=== PATIENT | male | born 1955 | race Caucasian/White ===

== ENCOUNTER 2016-08-22 17:29 | Emergency (ER) | payer OTHER ==
[2016-08-22 17:35] VITALS: BP 152/91; TEMP 97.3; BMI 39.3
[2016-08-22] MEDS ORDERED: NITROSTAT SL PRN (17:38)
[2016-08-22] MEDS ORDERED: SODIUM CHLORIDE 1,000 ML IV STA (17:38)
[2016-08-22 17:44] LABS: BASOPHILS % (AUTO) 0.4 % (0.0-3.0); EOSINOPHILS # (AUTO) 0.4 K/ul (0.0-0.7); EOSINOPHILS % (AUTO) 3.4 % (0.0-7.0); HEMATOCRIT 50.4 % (42.0-52.0); HEMOGLOBIN 15.9 g/dl (14.0-18.0); IMMATURE GRANULOCYTE % (AUTO) 0.2 % (0.0-5.0); LYMPHOCYTES # (AUTO) 3.1 K/uL (0.60-3.4); MEAN CORPUSCULAR HEMOGLOBIN 26.5 pg (27.0-31.0); MEAN CORPUSCULAR HGB CONC 31.5 (31.8-35.4); MONOCYTES # (AUTO) 0.7 K/uL (0.4-2.0); MONOCYTES % (AUTO) 6.4 (0-10); NEUTROPHILS # (AUTO) 6.1 K/ul (2.0-6.9); NEUTROPHILS % (AUTO) 59.6; PLATELET COUNT 164 10^3/uL (140-440); WHITE BLOOD COUNT 10.29 K/ul (4.2-10.2)
--- NOTE | 2016-08-22 17:44 | ED.PDOC ---
General ED Provider: Dr. BRITNI HENRY JR Chief Complaint: Chest Pain Stated Complaint: chest pain since friday intermittent--no pain yesterday-- became worse at 1400 today with pain to midchest and pain between shoulder blades--took 4 baby aspirin--pain cont --had VT in past with similar pain[End] 97.3 71 20 96 152/91 03/20 Time Seen by Physician: 17:43 Mode of Arrival: Wheelchair Information Source: Patient Exam Limitations: No limitations Primary Care Provider: PREM NELSON Nursing and Triage Documentation Reviewed and Agree: No Review of Systems - Review Of Systems Constitutional: Reports: No symptoms Eyes: Reports: No symptoms Ears, Nose, Mouth, Throat: Reports: No symptoms Respiratory: Reports: No symptoms Cardiac: Reports: Chest pain GI: Reports: No symptoms : Reports: No symptoms Musculoskeletal: Reports: No symptoms Skin: Reports: No symptoms Neurological: Reports: No symptoms Endocrine: Reports: No symptoms Hematologic/Lymphatic: Reports: No symptoms All Other Systems: Other Past Medical History - Past Medical History Previously Healthy: Yes Endocrine: Reports: None Cardiovascular: Reports: CAD, [place] Respiratory: Reports: None Hematological: Reports: None Gastrointestinal: Reports: None Genitourinary: Reports: None Neuro/Psych: Reports: None Musculoskeletal: Reports: Arthritis Cancer: Reports: None - Surgical History General Surgical History: Reports: Orthopedic (KNEE REPLACEMENT (RIGHT)), Other (PARTIAL COLON REMOVAL IN 1997) - Family History Family History: Reports: Unknown - Social History Smoking Status: Former smoker Hx Substance Use: No Alcohol Screening: Occasionally Physical Exam - Physical Exam Appearance: Well-appearing, Obese Pain Distress: Moderate Eyes: RONNIE, EOMI, Conjunctiva clear ENT: Ears normal, Nose normal, Oropharynx normal Neck: Supple Respiratory: Airway patent, Breath sounds clear, Breath sounds equal, Respirations nonlabored Cardiovascular: RRR, Pulses normal, No rub, No murmur GI/: Soft, Nontender, No masses, Bowel sounds normal, No Organomegaly Musculoskeletal: Normal strength, ROM intact, No edema, No calf tenderness Skin: Warm, Dry, Normal color Neurological: Sensation intact, Motor intact, Reflexes intact, Cranial nerves intact, Alert, Oriented Psychiatric: Affect appropriate, Mood appropriate Interpretation - Radiology Interpretation Radiology Interpretation By: ED Physician Exam Interpreted: CXR - EKG Interpretation Time of EKG #1: 17:43 Rate: Normal Rhythm: Sinus ST Segment: Other (post and left lat FB) Interpretation: 01/05/16 EKG Comparison: No significant changes Re-Evaluation - Re-Evaluation Time of Re-Evaluation: 20:34 (patient is recommended to stay for rule out- patietn refuses admission- DR NELSON...Dr Loya cold reduction roller agrees to allow follow up in morning noting patietn offered admission and refused(not requiring AMA )) Status: Improved Critical Care Note - Critical Care Note Total Time (mins): 20 Course - Course Hematology/Chemistry: 08/22/16 17:38 08/22/16 17:30 Orders, Labs, Meds: Lab Review 08/22/16 08/22/16 17:30 17:38 WBC 10.29 H RBC 6.00 Hgb 15.9 Hct 50.4 MCV 84.0 MCH 26.5 L MCHC 31.5 L RDW Coeff of Vianey 15.9 H Plt Count 164 Immature Gran % (Auto) 0.2 Neut % (Auto) 59.6 Lymph % (Auto) 30.0 [place] % (Auto) 6.4 Eos % (Auto) 3.4 Baso % (Auto) 0.4 Immature Gran # (Auto) 0.0 Neut # 6.1 Lymph # 3.1 [place] # 0.7 Eos # 0.4 Baso # 0.0 D-Dimer 1144.14 H Puncture Site Rrad O2 Saturation 97.0 ABG pH 7.473 H ABG pCO2 35.8 ABG pO2 88.0 ABG HCO3 26.3 H ABG Total CO2 27 ABG Base Excess 3 H Norberto Test + FiO2 % 21.0 Sodium 141 Potassium 3.8 Chloride 105 Carbon Dioxide 24 Anion Gap 15.8 BUN 15 Creatinine 1.05 Estimated GFR (MDRD) 73.00 BUN/Creatinine Ratio 14.28 Glucose 163 H Calcium 8.2 Total Bilirubin 0.34 AST 27 ALT 31 Alkaline Phosphatase 114 Total Creatine Kinase 356 CK-MB (CK-2) 3.8 H CK-MB (CK-2) % 1.65789 Troponin I 0.0370 B-Natriuretic Peptide 51 Total Protein 7.4 Albumin 3.9 Globulin 3.5 Albumin/Globulin Ratio 1.11 Orders Category Date Time Status ABG DRAW REQUEST Stat CARDIO 08/22/16 17:39 Completed EKG-(ED ONLY) Stat CARDIO 08/22/16 17:38 Completed NPO REMINDER: IMAGING ONCE CARE 08/22/16 18:32 Active ED PRODUCT ASSURANCE ENGINEER APPLIED .ONCE EMERGENCY 08/22/16 17:38 Active ED IV/MEDIPORT/POWERPORT .ONCE EMERGENCY 08/22/16 17:38 Active ABG Stat LAB 08/22/16 17:30 Completed B-TYPE NATRIURETIC PEPTIDE Stat LAB 08/22/16 17:30 Completed CBC W/ AUTO DIFF Stat LAB 08/22/16 17:38 Completed COMPREHENSIVE METABOLIC PANEL Stat LAB 08/22/16 17:30 Completed CREATINE KINASE Stat LAB 08/22/16 17:30 Completed D-DIMER Stat LAB 08/22/16 17:30 Completed TROPONIN I Stat LAB 08/22/16 17:30 Completed 0.9 % Sodium Chloride [Saline Flush] MEDS 08/22/16 17:38 Ordered 1 syr IVF PRN PRN Nitroglycerin [Nitrostat] MEDS 08/22/16 17:38 Ordered 0.4 mg SL Q5MIN X 3 DOSES PRN Sodium Chloride 0.9% [Sodium Chloride] 1,000 ml MEDS 08/22/16 17:38 Active IV 100 mls/hr CHEST, 1V AP ONLY Stat RADS 08/22/16 17:[address] CHEST PE PROTOCOL Stat RADS 08/22/16 18:32 Completed Medications Generic Name Dose Route Start Last Admin Trade Name Freq PRN Reason Stop Dose Admin Sodium Chloride 1,000 mls @ 100 mls/hr 08/22/16 17:38 08/22/16 17:52 Sodium Chloride IV 08/23/16 03:37 100 mls/hr .Q10H STA Administration Nitroglycerin 0.4 mg 08/22/16 17:38 08/22/16 17:59 Nitrostat SL 0.4 mg Q5MIN X 3 DOSES PRN Administration Chest Pain Sodium Chloride 1 syr 08/22/16 17:38 08/22/16 17:52 Saline Flush IVF 1 syr PRN PRN Administration To flush IV Vital Signs: Temp Pulse Resp BP Pulse Ox 08/22/16 17:29 97.3 F L 71 20 152/91 H 96 GENTRY Risk Score GENTRY Risk Score: Risk Score Odds of by 30D 0 0.1 (0.1-0.2) 1 0.3 (0.2-0.3) 2 0.4 (0.3-0.5) 3 0.7 (0.6-0.9) 4 1.2 (1.0-1.5) 5 2.2 (1.9-2.6) 6 3.0 (2.5-3.6) 7 4.8 (3.8-6.1) Departure - Departure Time of Disposition: 20:32 Disposition: HOME SELF-CARE Discharge Problem: Chest pain Instructions: Angina (ED) Condition: Good Pt referred to PMD for follow-up: Yes Additional Instructions: follow up with Dr Nelson in the office tomorrow you have been offered admission and have refused to stay we prefer you stay and be evaluated tonight note that chest pain may indicate an ongoing heart attach you may not survive a heart attack and can be cared for in the hospital- not at home Allergies/Adverse Reactions: Allergies Penicillins Adverse Reaction (Verified 08/22/16 17:41) Home Medications: Ambulatory Orders Aspirin [Aspirin EC] 325 mg PO DAILY 02/16/13 Atorvastatin Calcium [Lipitor] 10 mg PO BEDTIME 02/16/13 Carvedilol [Coreg] 12.5 mg PO DAILY 02/16/13 Diclofenac Sodium [Voltaren-Xr] 75 mg PO DAILY 02/16/13 Losartan Potassium [Cozaar] 50 mg PO DAILY 02/16/13 Nitroglycerin [Nitrostat] 0.4 mg SL Q5MIN PRN 02/16/13 Pregabalin [Lyrica] 75 mg PO BID 02/16/13 Metformin Ex Release HCl [Glucophage Xr 500Mg] 500 mg PO DAILYWM 08/22/16 Testosterone Cypionate [Testone Cik] 200 mg IM DIRECTED 08/22/16
[2016-08-22 17:57] LABS: ABG PH 7.473 (7.35-7.45)
[2016-08-22] MEDS ORDERED: NITROSTAT SL ONE (17:57)
[2016-08-22 17:58] LABS: ABG BASE EXCESS 3 (-2.0-2.0); ABG HCO3 26.3 (22.0-26.0); ABG PCO2 35.8 mmHg (35-45); ABG TCO2 27 (22.0-28.0)
--- NOTE | 2016-08-22 18:05 | DI ---
EXAM: Single view chest. HISTORY: Chest pain. COMPARISON: 01/05/2016 FINDINGS: Examination is suboptimal secondary to extreme apical lordotic technique. The heart appear s mildly enlarged, however, may be accentuated by the radiographic technique. The pulmonary vascula rity is within normal limits. No definite focal airspace opacity or pleural effusion. Mild osteoar thritis of the bilateral acromioclavicular joints is present. IMPRESSION: No acute chest findings on this limited exam.
[2016-08-22 18:16] LABS: ALBUMIN 3.9 g/dL (3.4-5.0); ALBUMIN/GLOBULIN RATIO 1.11; ANION GAP 15.8; BILIRUBIN,TOTAL 0.34 mg/dL (0.00-1.20); BUN/CREATININE RATIO 14.28; CALCIUM 8.2 mg/dL (8.2-10.2); CREATININE 1.05 mg/dL (0.60-1.10); POTASSIUM 3.8 mmol/L (3.5-5.1); TOTAL PROTEIN 7.4 g/dL (6.4-8.2); TROPONIN I 0.037 ng/ml (0.0000-0.4000)
[2016-08-22 18:21] LABS: CREATINE KINASE MB 3.8 ng/ml (0.0-3.6)
--- NOTE | 2016-08-22 20:15 | CT ---
EXAM: CTA chest with contrast HISTORY: Chest pain and positive D-dimer. TECHNIQUE: Multi-slice transaxial helical PE protocol. Multiplanar MIP and 3D volume rendered imag es are provided. COMPARISON: Chest radiograph from same day. FINDINGS: There are no main, lobar, or segmental pulmonary arterial filling defects.The heart appears mildly e nlarged. A mildly enlarged subcarinal lymph node is present which measures up to 1.1 cm in diameter . Otherwise no evidence of mediastinal adenopathy is seen. The thyroid appears unremarkable. There is no axillary adenopathy. The gallbladder has been remove d. Multiple sub centimeter hypodensities are present within the left kidney which are too small to actually characterize. Otherwise the partially imaged upper abdomen appears unremarkable. The ther e is mild multilevel degenerative changes of the thoracic spine with bridging anterior osteophytosis . Bibasilar subsegmental atelectasis is present. Emphysematous changes of the left lung base are pres ent. Small clustered lymph nodes in the left lung base are present measuring up to 4 mm in size. Ot herwise no focal airspace opacity or pleural effusion is seen. There is mild pleural thickening in the right lung base. IMPRESSION: 1. Negative exam for PE. 2. No acute cardiopulmonary findings. 3. Mild cardiomegaly. 4. Nonspecific mildly enlarged subcarinal lymph node measuring up to 1.1 cm. 5. Small pulmonary nodules in the left lung base measuring up to 4 mm. Recommend follow-up per Fle ischner criteria. 6. Cholecystectomy. 7. Left renal hypodensities too small to accurately characterize. Comment: Fleischner Society Recommendations on Incidental Pulmonary Nodule Follow-up: -measurements are for average length and width, non solid (ground glass) or partly solid nodules may require longer follow-up. Low risk patient: (minimal or absent known risk factors) <=4mm- no follow up needed >4-6mm- 12 mo, >6-8mm- initial at 6-12 mo, then 18-24 mo if no change >8mm- follow up CT at 3, 9, 24 mo, dynamic thin slice contrast CT, PET and/or biopsy High risk patient: (history of smoking or other risk factors) <=4mm- follow up CT at 12 mo >4-6mm- initial CT at 6-12 mo then 18-24 mo if no change >6-8mm- initial CT at 3-6, 9-12 then 18-24 mo >8mm- same as low risk ]
== END 2016-08-22 20:45 | disposition home or self-care (01) ==
LOC: ED 17:29
DX: R07.9 Chest pain, unspecified (principal); I20.9 Angina pectoris, unspecified; I25.2 Old myocardial infarction; I25.10 Atherosclerotic heart disease of native coronary artery without angina pectoris; Z79.899 Other long term (current) drug therapy
CPT/HCPCS: 36415; 80053; 82550; 82553; 82803; 83880; 84484; 85025; 85379; 93005; 93010; 96360; 99284

== ENCOUNTER 2016-08-29 12:04 | Outpatient (CLI) | payer OTHER ==
[2016-08-29 12:28] LABS: BASOPHILS # (AUTO) 0.1 K/uL (0-0.2); BASOPHILS % (AUTO) 0.6 % (0.0-3.0); EOSINOPHILS # (AUTO) 0.3 K/ul (0.0-0.7); EOSINOPHILS % (AUTO) 2.9 % (0.0-7.0); HEMATOCRIT 50.9 % (42.0-52.0); HEMOGLOBIN 16.2 g/dl (14.0-18.0); IMMATURE GRANULOCYTE % (AUTO) 0.1 % (0.0-5.0); LYMPHOCYTES # (AUTO) 2.6 K/uL (0.60-3.4); LYMPHOCYTES % (AUTO) 29.8 (10.0-50.0); MEAN CORPUSCULAR HEMOGLOBIN 26.8 pg (27.0-31.0); MEAN CORPUSCULAR HGB CONC 31.8 (31.8-35.4); MEAN CORPUSCULAR VOLUME 84.3 fl (80.0-94.0); MONOCYTES # (AUTO) 0.5 K/uL (0.4-2.0); MONOCYTES % (AUTO) 5.8 (0-10); NEUTROPHILS # (AUTO) 5.4 K/ul (2.0-6.9); NEUTROPHILS % (AUTO) 60.8; PLATELET COUNT 169 10^3/uL (140-440); RED BLOOD COUNT 6.04 10^6/ul (4.70-6.10); WHITE BLOOD COUNT 8.85 K/ul (4.2-10.2)
== END 2016-08-29 12:05 | disposition home or self-care (01) ==
LOC: LAB 12:04
PROVIDERS: ATTEND Internal Medicine
DX: E29.1 Testicular hypofunction (principal); D75.1 Secondary polycythemia
CPT/HCPCS: 36415; 85025; 99195

== ENCOUNTER 2016-09-26 12:33 | Outpatient (CLI) ==
[2016-09-26 12:54] LABS: BASOPHILS # (AUTO) 0.1 K/uL (0-0.2); BASOPHILS % (AUTO) 0.7 % (0.0-3.0); EOSINOPHILS # (AUTO) 0.3 K/ul (0.0-0.7); EOSINOPHILS % (AUTO) 4.1 % (0.0-7.0); HEMATOCRIT 46.2 % (42.0-52.0); HEMOGLOBIN 15.2 g/dl (14.0-18.0); IMMATURE GRANULOCYTE % (AUTO) 0.2 % (0.0-5.0); LYMPHOCYTES # (AUTO) 2.7 K/uL (0.60-3.4); LYMPHOCYTES % (AUTO) 33.1 (10.0-50.0); MEAN CORPUSCULAR HEMOGLOBIN 27.5 pg (27.0-31.0); MEAN CORPUSCULAR HGB CONC 32.9 (31.8-35.4); MEAN CORPUSCULAR VOLUME 83.5 fl (80.0-94.0); MONOCYTES # (AUTO) 0.8 K/uL (0.4-2.0); MONOCYTES % (AUTO) 9.3 (0-10); NEUTROPHILS # (AUTO) 4.2 K/ul (2.0-6.9); NEUTROPHILS % (AUTO) 52.6; PLATELET COUNT 176 10^3/uL (140-440); RED BLOOD COUNT 5.53 10^6/ul (4.70-6.10); WHITE BLOOD COUNT 8.07 K/ul (4.2-10.2)
== END 2016-09-26 12:34 | disposition home or self-care (01) ==
LOC: LAB 12:33
PROVIDERS: ATTEND Internal Medicine
DX: E29.1 Testicular hypofunction (principal); D75.1 Secondary polycythemia
CPT/HCPCS: 36415; 85025

== ENCOUNTER 2016-10-24 11:11 | Outpatient (CLI) | payer OTHER ==
[2016-10-24 11:23] LABS: BASOPHILS % (AUTO) 0.5 % (0.0-3.0); EOSINOPHILS # (AUTO) 0.3 K/ul (0.0-0.7); EOSINOPHILS % (AUTO) 3.2 % (0.0-7.0); HEMATOCRIT 47.4 % (42.0-52.0); HEMOGLOBIN 15.4 g/dl (14.0-18.0); IMMATURE GRANULOCYTE % (AUTO) 0.2 % (0.0-5.0); LYMPHOCYTES # (AUTO) 2.5 K/uL (0.60-3.4); LYMPHOCYTES % (AUTO) 31.5 (10.0-50.0); MEAN CORPUSCULAR HEMOGLOBIN 26.9 pg (27.0-31.0); MEAN CORPUSCULAR HGB CONC 32.5 (31.8-35.4); MEAN CORPUSCULAR VOLUME 82.7 fl (80.0-94.0); MONOCYTES # (AUTO) 0.7 K/uL (0.4-2.0); MONOCYTES % (AUTO) 8.7 (0-10); NEUTROPHILS # (AUTO) 4.5 K/ul (2.0-6.9); NEUTROPHILS % (AUTO) 55.9; PLATELET COUNT 161 10^3/uL (140-440); RED BLOOD COUNT 5.73 10^6/ul (4.70-6.10); WHITE BLOOD COUNT 8.01 K/ul (4.2-10.2)
== END 2016-10-24 11:12 | disposition home or self-care (01) ==
LOC: LAB 11:11
PROVIDERS: ATTEND Internal Medicine
DX: E29.1 Testicular hypofunction (principal); D75.1 Secondary polycythemia
CPT/HCPCS: 36415; 85025

== ENCOUNTER 2016-11-21 11:52 | Outpatient (CLI) ==
[2016-11-21 12:10] LABS: BASOPHILS % (AUTO) 0.5 % (0.0-3.0); EOSINOPHILS # (AUTO) 0.3 K/ul (0.0-0.7); EOSINOPHILS % (AUTO) 3.4 % (0.0-7.0); HEMATOCRIT 45.9 % (42.0-52.0); HEMOGLOBIN 14.9 g/dl (14.0-18.0); IMMATURE GRANULOCYTE % (AUTO) 0.3 % (0.0-5.0); LYMPHOCYTES # (AUTO) 2.3 K/uL (0.60-3.4); LYMPHOCYTES % (AUTO) 28.3 (10.0-50.0); MEAN CORPUSCULAR HEMOGLOBIN 27.1 pg (27.0-31.0); MEAN CORPUSCULAR HGB CONC 32.5 (31.8-35.4); MEAN CORPUSCULAR VOLUME 83.5 fl (80.0-94.0); MONOCYTES # (AUTO) 0.7 K/uL (0.4-2.0); MONOCYTES % (AUTO) 8.5 (0-10); NEUTROPHILS # (AUTO) 4.7 K/ul (2.0-6.9); PLATELET COUNT 161 10^3/uL (140-440); WHITE BLOOD COUNT 7.99 K/ul (4.2-10.2)
== END 2016-11-21 11:53 | disposition home or self-care (01) ==
LOC: LAB 11:52
PROVIDERS: ATTEND Internal Medicine
DX: E29.1 Testicular hypofunction (principal); D75.1 Secondary polycythemia
CPT/HCPCS: 36415; 85025

== ENCOUNTER 2016-12-19 12:28 | Outpatient (CLI) ==
[2016-12-19 12:51] LABS: BASOPHILS # (AUTO) 0.1 K/uL (0-0.2); BASOPHILS % (AUTO) 0.6 % (0.0-3.0); EOSINOPHILS # (AUTO) 0.3 K/ul (0.0-0.7); EOSINOPHILS % (AUTO) 3.6 % (0.0-7.0); HEMATOCRIT 47.8 % (42.0-52.0); HEMOGLOBIN 15.8 g/dl (14.0-18.0); IMMATURE GRANULOCYTE % (AUTO) 0.2 % (0.0-5.0); LYMPHOCYTES # (AUTO) 2.5 K/uL (0.60-3.4); LYMPHOCYTES % (AUTO) 28.9 (10.0-50.0); MEAN CORPUSCULAR HEMOGLOBIN 27.2 pg (27.0-31.0); MEAN CORPUSCULAR HGB CONC 33.1 (31.8-35.4); MEAN CORPUSCULAR VOLUME 82.3 fl (80.0-94.0); MONOCYTES # (AUTO) 0.8 K/uL (0.4-2.0); MONOCYTES % (AUTO) 8.9 (0-10); NEUTROPHILS % (AUTO) 57.8; PLATELET COUNT 169 10^3/uL (140-440); RED BLOOD COUNT 5.81 10^6/ul (4.70-6.10); WHITE BLOOD COUNT 8.66 K/ul (4.2-10.2)
== END 2016-12-19 12:29 | disposition home or self-care (01) ==
LOC: LAB 12:28
PROVIDERS: ATTEND Internal Medicine
DX: D75.1 Secondary polycythemia (principal)
CPT/HCPCS: 36415; 85025

== ENCOUNTER 2017-01-16 11:57 | Outpatient (CLI) | payer OTHER ==
[2017-01-16 12:16] LABS: BASOPHILS % (AUTO) 0.4 % (0.0-3.0); EOSINOPHILS # (AUTO) 0.3 K/ul (0.0-0.7); EOSINOPHILS % (AUTO) 3.7 % (0.0-7.0); HEMATOCRIT 47.2 % (42.0-52.0); HEMOGLOBIN 15.6 g/dl (14.0-18.0); IMMATURE GRANULOCYTE % (AUTO) 0.1 % (0.0-5.0); LYMPHOCYTES # (AUTO) 2.4 K/uL (0.60-3.4); LYMPHOCYTES % (AUTO) 29.6 (10.0-50.0); MEAN CORPUSCULAR HEMOGLOBIN 27.4 pg (27.0-31.0); MEAN CORPUSCULAR HGB CONC 33.1 (31.8-35.4); MONOCYTES # (AUTO) 0.8 K/uL (0.4-2.0); NEUTROPHILS # (AUTO) 4.5 K/ul (2.0-6.9); NEUTROPHILS % (AUTO) 56.2; PLATELET COUNT 157 10^3/uL (140-440); RED BLOOD COUNT 5.69 10^6/ul (4.70-6.10); WHITE BLOOD COUNT 8.07 K/ul (4.2-10.2)
== END 2017-01-16 11:58 | disposition home or self-care (01) ==
LOC: LAB 11:57
PROVIDERS: ATTEND Internal Medicine
DX: D75.1 Secondary polycythemia (principal)
CPT/HCPCS: 36415; 85025

== ENCOUNTER 2017-02-18 12:28 | Outpatient (CLI) ==
[2017-02-18 12:43] LABS: BASOPHILS % (AUTO) 0.2 % (0.0-3.0); EOSINOPHILS # (AUTO) 0.3 K/ul (0.0-0.7); EOSINOPHILS % (AUTO) 2.9 % (0.0-7.0); HEMATOCRIT 47.9 % (42.0-52.0); HEMOGLOBIN 15.9 g/dl (14.0-18.0); IMMATURE GRANULOCYTE % (AUTO) 0.2 % (0.0-5.0); LYMPHOCYTES # (AUTO) 2.1 K/uL (0.60-3.4); LYMPHOCYTES % (AUTO) 24.1 (10.0-50.0); MEAN CORPUSCULAR HEMOGLOBIN 27.7 pg (27.0-31.0); MEAN CORPUSCULAR HGB CONC 33.2 (31.8-35.4); MEAN CORPUSCULAR VOLUME 83.6 fl (80.0-94.0); MONOCYTES # (AUTO) 0.7 K/uL (0.4-2.0); MONOCYTES % (AUTO) 8.5 (0-10); NEUTROPHILS # (AUTO) 5.6 K/ul (2.0-6.9); NEUTROPHILS % (AUTO) 64.1; PLATELET COUNT 164 10^3/uL (140-440); RED BLOOD COUNT 5.73 10^6/ul (4.70-6.10); WHITE BLOOD COUNT 8.74 K/ul (4.2-10.2)
== END 2017-02-18 12:29 | disposition home or self-care (01) ==
LOC: LAB 12:28
PROVIDERS: ATTEND Internal Medicine
DX: D75.1 Secondary polycythemia (principal)
CPT/HCPCS: 36415; 85025

== ENCOUNTER 2017-03-18 11:57 | Outpatient (CLI) ==
[2017-03-18 12:35] LABS: BASOPHILS # (AUTO) 0.1 K/uL (0-0.2); BASOPHILS % (AUTO) 0.6 % (0.0-3.0); EOSINOPHILS # (AUTO) 0.3 K/ul (0.0-0.7); EOSINOPHILS % (AUTO) 3.6 % (0.0-7.0); HEMATOCRIT 47.8 % (42.0-52.0); HEMOGLOBIN 16.2 g/dl (14.0-18.0); IMMATURE GRANULOCYTE % (AUTO) 0.1 % (0.0-5.0); LYMPHOCYTES # (AUTO) 2.3 K/uL (0.60-3.4); MEAN CORPUSCULAR HEMOGLOBIN 28.4 pg (27.0-31.0); MEAN CORPUSCULAR HGB CONC 33.9 (31.8-35.4); MEAN CORPUSCULAR VOLUME 83.9 fl (80.0-94.0); MONOCYTES # (AUTO) 0.7 K/uL (0.4-2.0); MONOCYTES % (AUTO) 9.3 (0-10); NEUTROPHILS # (AUTO) 4.5 K/ul (2.0-6.9); NEUTROPHILS % (AUTO) 57.4; PLATELET COUNT 163 10^3/uL (140-440); WHITE BLOOD COUNT 7.86 K/ul (4.2-10.2)
== END 2017-03-18 11:58 | disposition home or self-care (01) ==
LOC: LAB 11:57
PROVIDERS: ATTEND Internal Medicine
DX: D75.1 Secondary polycythemia (principal)
CPT/HCPCS: 36415; 85025

== ENCOUNTER 2017-04-16 12:25 | Outpatient (CLI) ==
[2017-04-16 12:46] LABS: BASOPHILS % (AUTO) 0.4 % (0.0-3.0); EOSINOPHILS # (AUTO) 0.3 K/ul (0.0-0.7); EOSINOPHILS % (AUTO) 3.9 % (0.0-7.0); HEMATOCRIT 48.8 % (42.0-52.0); HEMOGLOBIN 16.3 g/dl (14.0-18.0); IMMATURE GRANULOCYTE % (AUTO) 0.3 % (0.0-5.0); LYMPHOCYTES # (AUTO) 2.6 K/uL (0.60-3.4); LYMPHOCYTES % (AUTO) 32.9 (10.0-50.0); MEAN CORPUSCULAR HEMOGLOBIN 28.4 pg (27.0-31.0); MEAN CORPUSCULAR HGB CONC 33.4 (31.8-35.4); MONOCYTES # (AUTO) 0.5 K/uL (0.4-2.0); MONOCYTES % (AUTO) 6.5 (0-10); NEUTROPHILS # (AUTO) 4.5 K/ul (2.0-6.9); PLATELET COUNT 141 10^3/uL (140-440); RED BLOOD COUNT 5.74 10^6/ul (4.70-6.10); WHITE BLOOD COUNT 7.96 K/ul (4.2-10.2)
== END 2017-04-16 12:26 | disposition home or self-care (01) ==
LOC: LAB 12:25
PROVIDERS: ATTEND Internal Medicine
DX: D75.1 Secondary polycythemia (principal)
CPT/HCPCS: 36415; 85025

== ENCOUNTER 2017-05-20 12:23 | Outpatient (CLI) | payer OTHER ==
[2017-05-20 12:52] LABS: BASOPHILS # (AUTO) 0.1 K/uL (0-0.2); BASOPHILS % (AUTO) 0.5 % (0.0-3.0); EOSINOPHILS # (AUTO) 0.3 K/ul (0.0-0.7); EOSINOPHILS % (AUTO) 3.4 % (0.0-7.0); HEMATOCRIT 48.9 % (42.0-52.0); HEMOGLOBIN 16.4 g/dl (14.0-18.0); IMMATURE GRANULOCYTE % (AUTO) 0.3 % (0.0-5.0); LYMPHOCYTES # (AUTO) 2.7 K/uL (0.60-3.4); LYMPHOCYTES % (AUTO) 29.2 (10.0-50.0); MEAN CORPUSCULAR HEMOGLOBIN 28.9 pg (27.0-31.0); MEAN CORPUSCULAR HGB CONC 33.5 (31.8-35.4); MEAN CORPUSCULAR VOLUME 86.1 fl (80.0-94.0); MONOCYTES # (AUTO) 0.8 K/uL (0.4-2.0); MONOCYTES % (AUTO) 8.6 (0-10); NEUTROPHILS # (AUTO) 5.4 K/ul (2.0-6.9); PLATELET COUNT 152 10^3/uL (140-440); RED BLOOD COUNT 5.68 10^6/ul (4.70-6.10); WHITE BLOOD COUNT 9.37 K/ul (4.2-10.2)
== END 2017-05-20 12:24 | disposition home or self-care (01) ==
LOC: LAB 12:23
PROVIDERS: ATTEND Internal Medicine
DX: D75.1 Secondary polycythemia (principal)
CPT/HCPCS: 36415; 85025

== ENCOUNTER 2017-07-15 11:28 | Outpatient (CLI) ==
[2017-07-15 11:52] LABS: BASOPHILS # (AUTO) 0.1 K/uL (0-0.2); BASOPHILS % (AUTO) 0.7 % (0.0-3.0); EOSINOPHILS # (AUTO) 0.3 K/ul (0.0-0.7); HEMATOCRIT 47.9 % (42.0-52.0); HEMOGLOBIN 15.6 g/dl (14.0-18.0); IMMATURE GRANULOCYTE % (AUTO) 0.2 % (0.0-5.0); LYMPHOCYTES # (AUTO) 2.5 K/uL (0.60-3.4); LYMPHOCYTES % (AUTO) 29.2 (10.0-50.0); MEAN CORPUSCULAR HEMOGLOBIN 27.8 pg (27.0-31.0); MEAN CORPUSCULAR HGB CONC 32.6 (31.8-35.4); MEAN CORPUSCULAR VOLUME 85.2 fl (80.0-94.0); MONOCYTES # (AUTO) 0.8 K/uL (0.4-2.0); MONOCYTES % (AUTO) 9.2 (0-10); NEUTROPHILS # (AUTO) 4.8 K/ul (2.0-6.9); NEUTROPHILS % (AUTO) 56.7; PLATELET COUNT 190 10^3/uL (140-440); RED BLOOD COUNT 5.62 10^6/ul (4.70-6.10); WHITE BLOOD COUNT 8.45 K/ul (4.2-10.2)
== END 2017-07-15 11:29 | disposition home or self-care (01) ==
LOC: LAB 11:28
PROVIDERS: ATTEND Internal Medicine
DX: E11.9 Type 2 diabetes mellitus without complications (principal); D75.1 Secondary polycythemia; Z79.899 Other long term (current) drug therapy
CPT/HCPCS: 36415; 85025

== ENCOUNTER 2017-08-14 11:30 | Outpatient (CLI) | END 2017-08-14 11:31 | disposition home or self-care (01) | LOC: LAB 11:30 | PROVIDERS: ATTEND Internal Medicine | DX: E11.9 Type 2 diabetes mellitus without complications (principal); D75.1 Secondary polycythemia; Z79.899 Other long term (current) drug therapy | CPT/HCPCS: 36415; 85025 ==

== ENCOUNTER 2017-09-16 11:51 | Outpatient (CLI) | END 2017-09-16 11:52 | disposition home or self-care (01) | LOC: LAB 11:51 | PROVIDERS: ATTEND Internal Medicine | DX: E11.9 Type 2 diabetes mellitus without complications (principal); Z79.899 Other long term (current) drug therapy | CPT/HCPCS: 36415; 85025 ==

== ENCOUNTER 2017-10-28 12:04 | Outpatient (CLI) | payer OTHER | END 2017-10-28 12:05 | disposition home or self-care (01) | LOC: LAB 12:04 | PROVIDERS: ATTEND Internal Medicine | DX: E11.9 Type 2 diabetes mellitus without complications (principal); Z79.899 Other long term (current) drug therapy | CPT/HCPCS: 36415; 85025 ==

== ENCOUNTER 2017-12-09 09:13 | Outpatient (CLI) | END 2017-12-09 09:14 | disposition home or self-care (01) | LOC: LAB 09:13 | PROVIDERS: ATTEND Internal Medicine | DX: E11.9 Type 2 diabetes mellitus without complications (principal); Z79.899 Other long term (current) drug therapy | CPT/HCPCS: 36415; 85025 ==

== ENCOUNTER 2017-12-10 06:38 | Outpatient (CLI) | payer OTHER ==
--- NOTE | 2017-12-11 11:33 | ECHO2D ---
Date of Exam: 12/10/17 Ordering Physician: DR. PREM NELSON Room #: OP Reason for Echo: ATRIAL FIBRILLATION, FATIGUE M-Mode Normal Adult Results LV Dimensions Normal Adult Results AoV Opening excursions >1.6 >1.6 LVEDD-base- 3.5-5.8 5.8 Ao root dimensions 2.0-3.7 3.1 LVESD-base- 3.1-4.6 L. Atrium dimensions 1.9-3.8 5.7 Post. Wall thickness 0.8-1.1 1.4 IV septum (thickness) 0.7-1.2 1.4 Post. Wall excursion 0.72-1.3 NORMAL Septal motion NORMAL Systolic motion R. Ventricular cavity 1.5-2.0 NORMAL LVEF 60% 58% Paradoxical septal wall motion NORMAL 2-D : 2-D M Mode Echocardiogram was performed using apical four chamber and left parasternal long and short axis views. Mitral, tricuspid and aortic valves appear to be normal. Contractility of the left ventricle seems to be normal. Enlarged left atrial and left ventricle cavities. Aortic root appears to be normal. There is no pericardial effusion. There is no thrombus noted in the left ventricular or left aortic cavity. No mitral valve prolapse noted. COLOR FLOW: Mild Mitral Regurgitation M-MODE: MV: NORMAL AV: NORMAL TV: NORMAL PV: CHAMBER SIZE: ENLARGED LEFT ATRIAL AND LEFT VENTRICLE CAVITIES WALL MOTION: NORMAL PERICARDIUM: NORMAL INTERPRETATION: 1. LEFT VENTRICULAR HYPERTROPHY WITH MARKEDLY ENLARGED LEFT ATRIAL CAVITY 2. BORDERLINE LEFT VENTRICULAR CONTRACTILITY 3. MILD MITRAL REGURGITATION MTDD
== END 2017-12-10 06:39 | disposition home or self-care (01) ==
LOC: CAR 06:38
PROVIDERS: ATTEND Internal Medicine
DX: I48.91 Unspecified atrial fibrillation (principal); R06.02 Shortness of breath; R53.83 Other fatigue

== ENCOUNTER 2017-12-16 06:53 | Outpatient (CLI) ==
--- NOTE | 2017-12-16 10:48 | STRESSECHO ---
Date of Test: 12/16/17 Ordering Physician: DR. PREM NELSON Occupation:RETIRED Reason for Exam: A-FIB, FATIGUE Smoking History: QUIT 6 YR AGO Height: 70" Weight: 295 LBS Current Medications: LYRICA, COREG, ELIQUIS, LIPITOR, COZAAR Resting EKG: ATRIAL FIBRILLATION Target Heart Rate: 136/160 S-T SEGMENT STAGE MPH/GRADE HEART RATE BPM BLOOD PRESSURE MMHG RHYTHM +/- ELEVATION DEPRESSION SYMPTOMS,COMMENTS AT REST 83 128/80 A-FIB X NO SYMPTOMS 1 1.7/10% 135 140/76 A-FIB X NO SYMPTOMS 2 2.5/12% 3 3.4/14% 4 4.2/16% 5 5.0/18% Immediately After 148 A- FIB X SHORT OF AIR Minutes Post Exercise 4:00 82 136/80 A-FIB X NO SYMPTOMS Minutes Post Exercise DURATION OF EXERCISE: 3 MIN 24 SEC MAXIMUM HEART RATE REACHED: 148 REASON FOR TERMINATION: SHORT OF AIR 97% OXYGEN SATURATION WITH EXERCISE ON ROOM AIR METS 5.6 INTERPRETATION: 1. NO EVIDENCE OF ISCHEMIC ST-T WAVE 2. NO CHEST PAIN OR CHEST DISCOMFORT 3. BLOOD PRESSURE RESPONSE: NORMAL NORMAL LEFT VENTRICULAR CONTRACTILITY--RESTING AND POST EXERCISE MTDD
--- NOTE | 2017-12-16 10:50 | ECHOSTRESS ---
Date of Exam: 12/16/17 Ordering Physician: DR. PREM NELSON Reason for Echo: ATRIAL FIBRILLATION, FATIGUE, STRESS TEST--NO ISCHEMIA M-Mode Normal Adult Results LV Dimensions Normal Adult Results AoV Opening excursions >1.6 LVEDD-base- 3.5-5.8 Ao root dimensions 2.0-3.7 LVESD-base- 3.1-4.6 L. Atrium dimensions 1.9-3.8 Post. Wall thickness 0.8-1.1 IV septum (thickness) 0.7-1.2 Post. Wall excursion 0.72-1.3 Septal motion Systolic motion R. Ventricular cavity 1.5-2.0 LVEF 60% Paradoxical septal wall motion 2-D: NORMAL LEFT VENTRICULAR CONTRACTILITY--RESTING AND POST EXERCISE M-MODE: MV: AV: TV: PV: CHAMBER SIZE: WALL MOTION: NORMAL LEFT VENTRICULAR CONTRACTILITY--RESTING AND POST EXERCISE PERICARDIUM: INTERPRETATION: 1. NORMAL LEFT VENTRICULAR CONTRACTILITY--RESTING AND POST EXERCISE MTDD
== END 2017-12-16 06:54 | disposition home or self-care (01) ==
LOC: CAR 06:53
PROVIDERS: ATTEND Internal Medicine
DX: R06.02 Shortness of breath (principal); I48.91 Unspecified atrial fibrillation; R53.83 Other fatigue

== ENCOUNTER 2017-12-24 08:10 | Outpatient (CLI) | payer OTHER ==
--- NOTE | 2017-12-24 09:17 | DI ---
EXAM: Three views of the lumbar spine HISTORY: Lower extremity pain and weakness. COMPARISON: None FINDINGS: There is multilevel degenerative change with anterior disc osteophytes and disc space narro wing. Lumbosacral junction is significantly narrowed. There is moderate to severe facet arthropathy . There is multilevel neural foraminal narrowing noted on radiograph. There is no lytic or blastic lesion. There are surgical clips in right upper quadrant. IMPRESSION: 1. No acute compression fracture or subluxation. 2. 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 If further evaluation is clinically indicated, MRI may be obtained.
== END 2017-12-24 08:11 | disposition home or self-care (01) ==
LOC: RAD 08:10
PROVIDERS: ATTEND Internal Medicine
DX: M79.606 Pain in leg, unspecified (principal); R53.1 Weakness

== ENCOUNTER 2017-12-30 08:56 | Outpatient (CLI) | payer OTHER | END 2017-12-30 08:57 | disposition home or self-care (01) | LOC: CAR 08:56 | PROVIDERS: ATTEND Internal Medicine | DX: I48.91 Unspecified atrial fibrillation (principal) | CPT/HCPCS: 93227 ==

== ENCOUNTER 2017-12-31 12:25 | Emergency (ER) | payer OTHER ==
[2017-12-31 12:25] VITALS: BMI 39.3
[2017-12-31 12:37] VITALS: BP 119/75; TEMP 96.1
--- NOTE | 2017-12-31 15:36 | ED.PDOC ---
General ED Provider: Dr. ALAYNA GIVENS Chief Complaint: Palpitations Stated Complaint: chest pain/palpitations Time Seen by Physician: 12:33 Mode of Arrival: Walk-In Information Source: Patient, Family Exam Limitations: No limitations Primary Care Provider: PREM NELSON Nursing and Triage Documentation Reviewed and Agree: Yes Reviewed sepsis parameters & appropriate labs ordered?: Yes System Inflammatory Response Syndrome: Not Applicable Sepsis Protocol: For patient's 13 years and over: Temp is 96.8 and below OR 101 and greater Pulse >90 BPM Resp >20/minute Acutely Altered Mental Status Are patient's symptoms suggestive of a new infection, such as: -Pneumonia -Skin, Soft Tissue -Endocarditis -UTI -Bone, Joint Infection -Implantable Device -Acute Abdominal Infection -Wound Infection -Meningitis -Blood Stream Catheter Infection -Unknown System Inflammatory Response Syndrome: Not Applicable Cardiovascular Complaint Exam - Palpitations Complaint/Exam Onset/Duration: 1week Symptoms Are: Resolved (but has had 2/10 chest pain no syncope) Initial Severity: Mild Current Severity: Mild Character: Reports: Skipped beats Aggravating: Reports: None Alleviating: Reports: None Associated Signs and Symptoms: Reports: Chest pain. Denies: Lightheadedness, Dizziness, Syncope, Shortness of breath, Diaphoresis, Nausea, Vomiting Related History: Similar episode Related Surgical History: Reports: None Cardiac Risk Factors: Reports: CAD Pulmonary Embolism Risk Factors: Reports: None Atrial Fibrillation Risk Factors: Reports: CAD Thyroid Exam: Normal Differential Diagnoses: CAD Quality Indicators for AMI: EKG in 10min. Quality Indicators for Cardiac Chest Pain: EKG in 10min. Quality Indicator For Non-Traumatic Chest Pain/Syncope: EKG Performed Review of Systems - Review Of Systems Constitutional: Reports: No symptoms Eyes: Reports: No symptoms Ears, Nose, Mouth, Throat: Reports: No symptoms Respiratory: Reports: No symptoms Cardiac: Reports: Irregular heart rate, Palpitations GI: Reports: No symptoms : Reports: No symptoms Musculoskeletal: Reports: No symptoms Skin: Reports: No symptoms Neurological: Reports: No symptoms Endocrine: Reports: No symptoms Hematologic/Lymphatic: Reports: No symptoms All Other Systems: Reviewed and Negative Past Medical History - Past Medical History Previously Healthy: Yes Endocrine: Reports: None Cardiovascular: Reports: CAD, [place] Respiratory: Reports: None Hematological: Reports: None Gastrointestinal: Reports: None Genitourinary: Reports: None Neuro/Psych: Reports: None Musculoskeletal: Reports: Arthritis Cancer: Reports: None - Surgical History General Surgical History: Reports: Orthopedic (KNEE REPLACEMENT (RIGHT)), Other (PARTIAL COLON REMOVAL IN 1997) - Family History Family History: Reports: Unknown - Social History Smoking Status: Former smoker Hx Substance Use: No Alcohol Screening: None Physical Exam - Physical Exam Appearance: Well-appearing, No pain distress, Well-nourished Eyes: RONNIE, EOMI, Conjunctiva clear ENT: Ears normal, Nose normal, Oropharynx normal Respiratory: Airway patent, Breath sounds clear, Breath sounds equal, Respirations nonlabored Cardiovascular: RRR, Pulses normal, No rub, No murmur GI/: Soft, Nontender, No masses, Bowel sounds normal, No Organomegaly Musculoskeletal: Normal strength, ROM intact, No edema, No calf tenderness Skin: Warm, Dry, Normal color Neurological: Sensation intact, Motor intact, Reflexes intact, Cranial nerves intact, Alert, Oriented Psychiatric: Affect appropriate, Mood appropriate Interpretation - Senior Tax Manager Rhythm: Other (atrial flutter 3:1 block normal axis no acute changes) Physician Notification - Case Discussed Physician Notified: georgia cruz Time of Notification: 15:47 Critical Care Note - Critical Care Note Total Time (mins): 0 Course - Course Hematology/Chemistry: 12/31/17 13:40 12/31/17 13:40 Orders, Labs, Meds: Lab Review 12/31/17 12/31/17 13:40 13:40 WBC 10.60 H RBC 6.37 H Hgb 15.9 Hct 50.1 MCV 78.6 L MCH 25.0 L MCHC 31.7 L RDW Coeff of Vianey 18.4 H Plt Count 224 Immature Gran % (Auto) 0.3 Neut % (Auto) 61.5 Lymph % (Auto) 27.9 Randall % (Auto) 7.6 Eos % (Auto) 2.1 Baso % (Auto) 0.6 Immature Gran # (Auto) 0.0 Neut # (Auto) 6.5 Lymph # (Auto) 3.0 Randall # (Auto) 0.8 Eos # (Auto) 0.2 Baso # (Auto) 0.1 Sodium 140 Potassium 3.8 Chloride 106 Carbon Dioxide 24 Anion Gap 13.8 BUN 10 Creatinine 1.10 Estimated GFR (MDRD) 68.00 BUN/Creatinine Ratio 9.09 Glucose 88 Calcium 9.2 Total Bilirubin 0.7 AST 26 ALT 30 Alkaline Phosphatase 100 Total Creatine Kinase 249 CK-MB (CK-2) 3.4 CK-MB (CK-2) % 1.67054 Troponin I 0.0190 Total Protein 7.4 Albumin 3.9 Globulin 3.5 Albumin/Globulin Ratio 1.11 Orders Category Date Time Status EKG-(ED ONLY) Stat CARDIO 12/31/17 13:24 Completed CBC W/ AUTO DIFF Stat LAB 12/31/17 13:40 Completed COMPREHENSIVE METABOLIC PANEL Stat LAB 12/31/17 13:40 Completed CREATINE KINASE Stat LAB 12/31/17 13:40 Completed TROPONIN I Stat LAB 12/31/17 13:40 Completed Aspirin [Aspirin Chewable] MEDS 12/31/17 15:46 Stat 324 mg PO ONCE STA Medications Generic Name Dose Route Start Last Admin Trade Name Freq PRN Reason Stop Dose Admin Aspirin 324 mg 12/31/17 15:46 Aspirin Chewable PO 12/31/17 15:47 ONCE STA Vital Signs: Temp Pulse Resp BP Pulse Ox 12/31/17 12:32 96.1 F L 86 18 119/75 95 GENTRY Risk Score GENTRY Risk Score: Risk Score Odds of by 30D 0 0.1 (0.1-0.2) 1 0.3 (0.2-0.3) 2 0.4 (0.3-0.5) 3 0.7 (0.6-0.9) 4 1.2 (1.0-1.5) 5 2.2 (1.9-2.6) 6 3.0 (2.5-3.6) 7 4.8 (3.8-6.1) Departure - Departure Time of Disposition: 15:39 Disposition: TSF SHORT-TRM HOSP Discharge Problem: Palpitations, V-tach Atrial flutter Qualifiers: Atrial flutter type: unspecified Qualified Code(s): I48.92 - Unspecified atrial flutter Instructions: Atrial Flutter (ED) Condition: Good Pt referred to PMD for follow-up: Yes IPMP verified?: No Additional Instructions: Please call your Family Physician as soon as possible to schedule a follow-up appointment. Allergies/Adverse Reactions: Allergies Penicillins Adverse Reaction (Verified 12/31/17 12:28) Home Medications: Ambulatory Orders Atorvastatin Calcium [Lipitor] 10 mg PO BEDTIME 02/16/13 Carvedilol [Coreg] 12.5 mg PO DAILY 02/16/13 Losartan Potassium [Cozaar] 50 mg PO DAILY 02/16/13 Pregabalin [Lyrica] 75 mg PO BID 02/16/13 Testosterone Cypionate [Testone Cik] 200 mg IM DIRECTED 08/22/16 Alprazolam [Xanax] 1 mg PO BEDTIME 12/31/17 Apixaban [Eliquis] 5 mg PO BID 12/31/17 Hydrochlorothiazide 12.5 mg PO DAILY 12/31/17 Disposition Discussed With: Patient, Family
[2017-12-31] MEDS ORDERED: ASPIRIN CHEWABLE PO STA (15:46)
== END 2017-12-31 16:15 | disposition short-term general hospital (02) ==
LOC: ED 12:25
DX: R00.2 Palpitations (principal); I48.92 Unspecified atrial flutter; I47.2 Ventricular tachycardia; R07.9 Chest pain, unspecified; I25.10 Atherosclerotic heart disease of native coronary artery without angina pectoris; I25.2 Old myocardial infarction; Z79.899 Other long term (current) drug therapy
CPT/HCPCS: 36415; 80053; 82550; 82553; 84484; 85025; 93005; 93010; 99285

== ENCOUNTER 2018-01-20 11:10 | Outpatient (CLI) | payer OTHER | END 2018-01-20 11:11 | disposition home or self-care (01) | LOC: LAB 11:10 | PROVIDERS: ATTEND Internal Medicine | DX: E11.9 Type 2 diabetes mellitus without complications (principal); Z79.899 Other long term (current) drug therapy | CPT/HCPCS: 36415; 85025 ==

== ENCOUNTER 2018-01-26 08:29 | Outpatient (CLI) | END 2018-01-26 08:30 | disposition home or self-care (01) | LOC: CAR 08:29 | PROVIDERS: ATTEND Internal Medicine | DX: I48.91 Unspecified atrial fibrillation (principal) | CPT/HCPCS: 93227 ==

== ENCOUNTER 2018-02-16 09:00 | Outpatient (CLI) | END 2018-02-16 09:01 | disposition home or self-care (01) | LOC: LAB 09:00 | PROVIDERS: ATTEND Internal Medicine Cardiovascular Disease | DX: E78.5 Hyperlipidemia, unspecified (principal); I48.0 Paroxysmal atrial fibrillation; Z79.899 Other long term (current) drug therapy | CPT/HCPCS: 36415; 80053; 80061; 83036; 84443; 85025 ==

== ENCOUNTER 2018-06-05 11:17 | Outpatient (CLI) | payer OTHER | END 2018-06-05 11:18 | disposition home or self-care (01) | LOC: LAB 11:17 | PROVIDERS: ATTEND Internal Medicine Cardiovascular Disease | DX: I48.1 Persistent atrial fibrillation (principal) | CPT/HCPCS: 36415; 80048; 85027 ==

== ENCOUNTER 2018-08-13 08:34 | Outpatient (CLI) | END 2018-08-13 08:35 | disposition home or self-care (01) | LOC: LAB 08:34 | PROVIDERS: ATTEND Urology | DX: E29.1 Testicular hypofunction (principal) | CPT/HCPCS: 36415; 84403 ==

== ENCOUNTER 2018-08-19 09:01 | Outpatient (CLI) | payer OTHER ==
--- NOTE | 2018-08-19 10:05 | DI ---
EXAM: Double contrast upper GI History: Painful swallowing. Technique: Patient was given gas crystals. Patient was then given oral barium and multiple spot film s of the esophagus, stomach and duodenum were obtained in multiple projections. Findings: The course and caliber of the esophagus are within normal limits. No mucosal lesions or filling defe cts identified. Gastroesophageal junction is patent. No hiatal hernia. No gastroesophageal reflux was observed during the course of this examination. No discrete ulcerations are seen involving the s tomach. The course and caliber of the duodenum is within normal limits. No extravasation of contras t material. Impression: Normal study
== END 2018-08-19 09:02 | disposition home or self-care (01) ==
LOC: RAD 09:01
PROVIDERS: ATTEND Internal Medicine
DX: K21.9 Gastro-esophageal reflux disease without esophagitis (principal); R13.10 Dysphagia, unspecified

== ENCOUNTER 2018-09-23 12:04 | Outpatient (CLI) | END 2018-09-23 12:05 | disposition home or self-care (01) | LOC: LAB 12:04 | PROVIDERS: ATTEND Internal Medicine | DX: D75.1 Secondary polycythemia (principal) | CPT/HCPCS: 36415; 85025 ==

== ENCOUNTER 2018-10-15 09:24 | Outpatient (CLI) | END 2018-10-15 09:25 | disposition home or self-care (01) | LOC: LAB 09:24 | PROVIDERS: ATTEND Internal Medicine | DX: R06.02 Shortness of breath (principal); E11.9 Type 2 diabetes mellitus without complications; I48.91 Unspecified atrial fibrillation; D75.1 Secondary polycythemia; Z79.899 Other long term (current) drug therapy | CPT/HCPCS: 36415; 82565; 85025 ==

== ENCOUNTER 2018-10-19 07:39 | Outpatient (CLI) | payer OTHER ==
--- NOTE | 2018-10-19 09:02 | CT ---
EXAM: CT of the chest with and without contrast History: Follow-up lung nodules. Comparison: Chest CT 08/22/2016, CT of the heart is 06/22/2018 Technique: Multiplanar CT images through the thorax were obtained with and without the administratio n of IV contrast Findings: Heart size is normal. Coronary calcifications. No pericardial effusion. No thoracic aort ic aneurysm. No pathologically enlarged thoracic lymph nodes. No consolidation. No pleural fluid a nd no pneumothorax. Right basilar rounded atelectasis again noted. No change in the 4 mm left lung base nodules. No developing lung nodules. Within the visualized upper abdomen, status post cholecystectomy. No acute osseous abnormalities. 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 Impression: 1. No acute intrathoracic process. 2. No change in the 4 mm left lung base nodules. These are most likely benign. No additional follo w-up is needed. 3. Coronary artery disease
== END 2018-10-19 07:40 | disposition home or self-care (01) ==
LOC: RAD 07:39
PROVIDERS: ATTEND Internal Medicine
DX: R06.02 Shortness of breath (principal); R91.1 Solitary pulmonary nodule

== ENCOUNTER 2018-11-12 08:41 | Outpatient (CLI) | END 2018-11-12 08:42 | disposition home or self-care (01) | LOC: LAB 08:41 | PROVIDERS: ATTEND Urology | DX: E29.1 Testicular hypofunction (principal); D75.1 Secondary polycythemia; N42.9 Disorder of prostate, unspecified | CPT/HCPCS: 36415; 84153; 84403; 85025; 99195 ==

== ENCOUNTER 2018-12-18 09:32 | Outpatient (CLI) | END 2018-12-18 09:33 | disposition home or self-care (01) | LOC: LAB 09:32 | PROVIDERS: ATTEND Internal Medicine | DX: R53.83 Other fatigue (principal); I10 Essential (primary) hypertension; I48.91 Unspecified atrial fibrillation; M85.80 Other specified disorders of bone density and structure, unspecified site; E11.9 Type 2 diabetes mellitus without complications; E88.81 Metabolic syndrome and other insulin resistance | CPT/HCPCS: 36415; 80053; 80061; 82306; 82607; 83036; 83735; 84439; 84443; 84630; 85025; 86617; 86663 ==